=== PATIENT | female | born 1985 | race Caucasian/White ===

== ENCOUNTER 2017-02-20 20:40 | Inpatient (IN) | payer BC ==
[~2017-02-20] VITALS: Ht 172.7 cm; Wt 133.8 kg
[~2017-02-20 20:40] MED LIST: FENT2mCg/mL-ROPIVA0.2%/NS EPID 150 ML EP SCH; LIDOCAINE PF 1% 30ML(POUR BTL) INJ ONE; MINERAL OIL 30 ML UDC PO ONE
[2017-02-20] MEDS ORDERED: LR 1,000 ML IV ONE (21:37)
[2017-02-20] MEDS ORDERED: LR 1,000 ML IV SCH (21:37)
[2017-02-20] MEDS ORDERED: OXYTOCIN/NORMAL SALINE 1,000 ML IV SCH (21:37)
[2017-02-20] MEDS ORDERED: NALBUPHINE HCL 10 MG/ML AMP IVP PRN (21:45)
[2017-02-20] MEDS ORDERED: TERBUTALINE SULFATE 1 MG/ML VIAL SUBCUT ONE (21:45)
[2017-02-20] MEDS ORDERED: NALBUPHINE HCL 10 MG/ML AMP IM PRN (21:45)
[2017-02-20 23:24] LABS: BASOPHILS # (AUTO) 0.1 K/uL (0.0-0.2); BASOPHILS % (AUTO) 0.7 % (0.0-2.0); EOSINOPHILS # (AUTO) 0.4 K/uL (0.0-0.4); EOSINOPHILS % (AUTO) 3.7 % (0.0-4.0); HEMATOCRIT 34.1 % (36-48); HEMOGLOBIN 11.5 g/dL (12.0-16.0); LYMPHOCYTES # (AUTO) 1.6 K/uL (1.0-5.5); LYMPHOCYTES % (AUTO) 14.7 % (20.5-51.5); MEAN CORPUSCULAR HEMOGLOBIN 31 pg (27-31); MEAN CORPUSCULAR HGB CONC 34 % (32-36); MEAN CORPUSCULAR VOLUME 92 fL (79.0-98.0); MONOCYTES # (AUTO) 1.5 K/uL (0.0-1.0); NEUTROPHILS # (AUTO) 7.1 K/uL (1.8-7.7); NEUTROPHILS % (AUTO) 66.9 % (40.0-70.0); PLATELET COUNT (AUTO) 151 K/uL (130-430); RED BLOOD CELL COUNT(AUTO) 3.73 MIL/uL (4.2-6.2); RED CELL DISTRIBUTION WIDTH 13.2 % (9.0-15.0); WHITE BLOOD COUNT (AUTO) 10.7 K/uL (4.8-10.8)
[2017-02-21 01:23] VITALS: BP 135/81; PULSE 110; RESP 18; TEMP 98
[2017-02-21] MEDS ORDERED: FENT2mCg/mL-ROPIVA0.2%/NS EPID 150 ML EP ONE (04:36)
[2017-02-21] MEDS ORDERED: OXYTOCIN/NORMAL SALINE 1,000 ML IV ONE (10:22)
[2017-02-21] MEDS ORDERED: OXYTOCIN/NORMAL SALINE 1,000 ML IV SCH (10:22)
[2017-02-21] MEDS ORDERED: LANOLIN 7 GM OINT. TP PRN (10:30)
[2017-02-21] MEDS ORDERED: METHYLERGONOVINE MALEATE 0.2 MG TABLET PO PRN (10:30)
[2017-02-21] MEDS ORDERED: RHO(D) IMMUNE GLOBULIN/MALTOSE 1500 UNITS/1.3 ML (WINHRO) IM PRN (10:30)
[2017-02-21] MEDS ORDERED: DERMOPLAST SPRAY TP PRN (10:30)
[2017-02-21] MEDS ORDERED: SENNOSIDES/DOCUSATE SODIUM 1 TAB TABLET(SENOKOT-S) PO PRN (10:30)
[2017-02-21] MEDS ORDERED: HYDROCORTISONE 0.5%, 28.35 GM TOPICAL CREAM TP PRN (10:30)
[2017-02-21] MEDS ORDERED: OXYCODONE/ACETAMINOPHEN 5-325 TABLET PO PRN ×2 (10:30)
[2017-02-21] MEDS ORDERED: ANUSOL 1 EA SUPP.RECT (PREPARATION H) RC PRN (10:30)
[2017-02-21] MEDS ORDERED: ACETAMINOPHEN 325 MG TABLET PO PRN (10:30)
[2017-02-21] MEDS ORDERED: DOCUSATE SODIUM 100 MG CAPSULE PO PRN (10:30)
[2017-02-21] MEDS ORDERED: MEASLES,MUMPS&RUBELLA VACC/PF 12500 UNIT/0.5 ML VIAL SUBQ PRN (10:30)
[2017-02-21] MEDS ORDERED: GLYCERIN/WITCH HAZEL (TUCKS PADS) TP PRN (10:30)
[2017-02-21] MEDS: IBUPROFEN 600 MG TABLET PO SCH ×3 (11:59→23:21)
[2017-02-21] MEDS ORDERED: TEMAZEPAM 15 MG CAPSULE PO PRN (21:00)
[2017-02-22] MEDS: IBUPROFEN 600 MG TABLET PO SCH ×2 (05:36→12:26)
[2017-02-22 07:15] LABS: HEMATOCRIT 31.3 % (36-48); HEMOGLOBIN 10.7 g/dL (12.0-16.0)
== END 2017-02-22 14:30 | disposition home or self-care (01) | DRG 775 ==
LOC: SPU 20:40
PROVIDERS: ADMIT Obstetrics & Gynecology; ATTEND Obstetrics & Gynecology
PROC: 10E0XZZ Delivery of Products of Conception, External Approach (ICD-10-PCS; principal; 2017-02-21)
PROC: 0HQ9XZZ Repair Perineum Skin, External Approach (ICD-10-PCS; 2017-02-21)
PROC: 3E0S3CZ (ICD-10-PCS; 2017-02-21)
PROC: 00HU33Z Insertion of Infusion Device into Spinal Canal, Percutaneous Approach (ICD-10-PCS; 2017-02-21)
PROC: 3E0234Z Introduction of Serum, Toxoid and Vaccine into Muscle, Percutaneous Approach (ICD-10-PCS; 2017-02-21)
DX: O69.81X0 Labor and delivery complicated by cord around neck, without compression, not applicable or unspecified (principal); Z68.41 Body mass index [BMI] 40.0-44.9, adult; O70.0 First degree perineal laceration during delivery; O99.214 Obesity complicating childbirth; E66.01 Morbid (severe) obesity due to excess calories; Z37.0 Single live birth; Z3A.39 39 weeks gestation of pregnancy; Z23 Encounter for immunization
CPT/HCPCS: 36415; 81002-TC; 85018-TC; 85025; 86592; 86886; 86900; 86901; J2001; J2590; J3010; J7120

== ENCOUNTER 2018-06-27 07:00 | Day surgery (SDC) | payer BC ==
[2018-06-25 12:46] LABS: BASOPHILS % (AUTO) 0.7 % (0.0-2.0); EOSINOPHILS # (AUTO) 0.2 K/uL (0.0-0.4); EOSINOPHILS % (AUTO) 3.6 % (0.0-4.0); HEMATOCRIT 36.6 % (36-48); HEMOGLOBIN 12.1 g/dL (12.0-16.0); LYMPHOCYTES # (AUTO) 1.6 K/uL (1.0-5.5); LYMPHOCYTES % (AUTO) 28.5 % (20.5-51.5); MEAN CORPUSCULAR HEMOGLOBIN 26 pg (27-31); MEAN CORPUSCULAR HGB CONC 33 % (32-36); MEAN CORPUSCULAR VOLUME 80 fL (79.0-98.0); MONOCYTES # (AUTO) 0.7 K/uL (0.0-1.0); MONOCYTES % (AUTO) 11.7 % (1.7-9.3); NEUTROPHILS # (AUTO) 3.2 K/uL (1.8-7.7); NEUTROPHILS % (AUTO) 55.5 % (40.0-70.0); PLATELET COUNT (AUTO) 211 K/uL (130-430); RED BLOOD CELL COUNT(AUTO) 4.58 MIL/uL (4.2-6.2); RED CELL DISTRIBUTION WIDTH 17.5 % (9.0-15.0); WHITE BLOOD COUNT (AUTO) 5.7 K/uL (4.8-10.8)
[2018-06-25 12:58] LABS: CREATININE 0.93 mg/dL (0.55-1.30); POTASSIUM 4.5 mmol/L (3.5-5.1)
[~2018-06-27] VITALS: Ht 172.7 cm; Wt 120.2 kg
[2018-06-27] MEDS ORDERED: fentaNYL CITRATE/PF 100 MCG/2 ML AMP IVP PRN ×2 (09:15)
[2018-06-27] MEDS ORDERED: ONDANSETRON HCL 4 MG/2 ML VIAL IVP PRN ×2 (09:15→11:00)
[2018-06-27] MEDS ORDERED: KETOROLAC TROMETHAMINE 30 MG VIAL IVP PRN (09:15)
[2018-06-27] MEDS ORDERED: fentaNYL CITRATE/PF 100 MCG/2 ML AMP IVP ONE (09:40)
[2018-06-27] MEDS ORDERED: PROPOFOL 200MG/ 20ML VIAL (DIPRIVAN) IV ONE (09:40)
[2018-06-27] MEDS ORDERED: KETOROLAC TROMETHAMINE 30 MG VIAL IVP ONE (09:40)
[2018-06-27] MEDS ORDERED: LR 1,000 ML IV.SOLN IV ONE (09:40)
[2018-06-27] MEDS ORDERED: MIDAZOLAM HCL 5 MG/5 ML VIAL IVP ONE (09:40)
[2018-06-27] MEDS ORDERED: GLYCOPYRROLATE 0.2 MG/ML VIAL IJ ONE (09:40)
[2018-06-27] MEDS ORDERED: ROCURONIUM BROMIDE 10 MG/ML (ZEMURON) IV ONE (09:40)
[2018-06-27] MEDS ORDERED: NEOSTIGMINE METHYLSULFATE 1 MG/ML, 10 ML VIAL IVP ONE (09:40)
[2018-06-27] MEDS ORDERED: SEVOFLURANE 15 MIN GAS INH ONE (09:40)
[2018-06-27] MEDS ORDERED: NS IRRIG SOLN 1000 ML IR ONE (09:40)
[2018-06-27] MEDS ORDERED: ONDANSETRON HCL 4 MG/2 ML VIAL IVP ONE (09:40)
[2018-06-27] MEDS ORDERED: PROMETHAZINE HCL 25 MG/ML AMP IM PRN (11:00)
[2018-06-27] MEDS ORDERED: OXYCODONE/ACETAMINOPHEN 5-325 TABLET PO PRN (11:00)
[2018-06-27 11:40] VITALS: BP_SYST 96
== END 2018-06-27 13:00 | disposition home or self-care (01) ==
LOC: SDS 07:00 → SMU 07:00 → SDS 13:00
PROVIDERS: ATTEND Obstetrics & Gynecology
DX: Z30.2 Encounter for sterilization (principal); Z98.890 Other specified postprocedural states; Z79.899 Other long term (current) drug therapy; E66.9 Obesity, unspecified; F32.9 Major depressive disorder, single episode, unspecified; F41.9 Anxiety disorder, unspecified; J45.909 Unspecified asthma, uncomplicated
CPT/HCPCS: 36415; 58670; 80048; 84703; 85025; 86886; 86900; 86901; C1727; J1885; J2250; J2405; J2704; J2710; J3010; J3490; J7120